=== PATIENT | male | born 1935 | race Caucasian/White ===

== ENCOUNTER 2023-10-24 19:24 | Inpatient (IN) | payer MEDICARE, OTHER ==
[2023-10-24] MEDS ORDERED: Albuterol/Ipratropium 3.0-0.5 MG/3 ML Neb Soln NEB ONE (19:30)
[2023-10-24 19:49] LABS: BASOPHILS ABSOLUTE AUTO 0.02 10^3/uL (0.00-0.50); BASOPHILS PERCENT AUTO 0.2 % (0-1); EOSINOPHILS ABSOLUTE AUTO 0.01 10^3/uL (0.00-1.50); EOSINOPHILS PERCENT AUTO 0.1 % (0-6); HEMATOCRIT 36.7 % (42.0-52.0); HEMOGLOBIN 11.8 g/dL (14.0-18.0); IMMATURE GRAN ABSOLUTE AUTO 0.03 10^3/uL (0.00-0.49); IMMATURE GRAN PERCENT AUTO 0.2 % (0.0-4.9); LYMPHOCYTES ABSOLUTE AUTO 0.92 10^3/uL (0.60-5.00); LYMPHOCYTES PERCENT AUTO 7.4 % (24-44); MEAN CORPUSCULAR HEMOGLOBIN 28.7 pg (27.0-32.0); MEAN CORPUSCULAR HGB CONC 32.2 g/dL (32.0-36.0); MEAN CORPUSCULAR VOLUME 89.3 fL (83.0-97.0); MONOCYTES ABSOLUTE AUTO 1.47 10^3/uL (0.00-1.50); MONOCYTES PERCENT AUTO 11.8 % (0-10); NEUTROPHILS ABSOLUTE AUTO 10.02 x10^3/uL (1.80-8.00); NEUTROPHILS PERCENT AUTO 80.3 % (41-71); PLATELET COUNT,PLT 186 10^3/uL (150-400); RED BLOOD CELL COUNT 4.11 x10^6/uL (4.50-6.00); WHITE BLOOD CELL COUNT,WBC 12.5 10^3/uL (4.0-11.0)
[2023-10-24 20:10] LABS: ALANINE AMINOTRANSFERASE,ALT 13 U/L (12-78); ALBUMIN 2.8 g/dL (3.4-5.0); ALKALINE PHOSPHATASE 75 U/L (46-116); ASPARTATE AMNIOTRANSFERASE,AST 14 U/L (15-37); BILIRUBIN TOTAL 0.4 mg/dL (0.0-1.0); BLOOD UREA NITROGEN,BUN 41 mg/dL (7-18); C-REACTIVE PROTEIN 7.96 mg/dL (<=0.50); CALCIUM 8.6 mg/dL (8.4-10.1); CARBON DIOXIDE,CO2 27 mmol/L (21-32); CHLORIDE,CL 101 mEq/L (98-106); CREATININE 1.6 mg/dL (0.7-1.3); ESTIMATED GFR 41 mL/min (>=60); GLUCOSE RANDOM 118 mg/dL (75-99); MAGNESIUM 1.9 mg/dL (1.8-2.4); POTASSIUM,K 4.4 mEq/L (3.5-5.0); PRO B-TYPE NATRIUR PEPT,BNPPRO 2871 pg/mL (0-1000); PROTEIN TOTAL,TP 6.9 g/dL (6.4-8.2); SODIUM,NA 136 mEq/L (136-145)
[2023-10-24 20:26] LABS: CORONAVIRUS COVID-19 NAA NEGATIVE (NEGATIVE); INFLUENZA A NAA POSITIVE (NEGATIVE); INFLUENZA B NAA NEGATIVE (NEGATIVE); RESPIRATORY SYNCYTIAL VIR NAA NEGATIVE (NEGATIVE)
[2023-10-24] MEDS ORDERED: Ondansetron 4 MG Tab.DIS PO PRN (21:51)
[2023-10-24] MEDS ORDERED: Ondansetron 4 MG/2 ML SDV IV PRN (21:51)
[2023-10-24] MEDS ORDERED: Acetaminophen 650 MG Supp RECTAL PRN (21:51)
[2023-10-24] MEDS ORDERED: Sodium Chloride 0.9% 10 ML Syringe FLUSH PRN (21:51)
[2023-10-24] MEDS ORDERED: Albuterol 0.083% 2.5 MG/3 ML Neb Soln NEB PRN (21:51)
[2023-10-24] MEDS ORDERED: Acetaminophen 325 MG Tab PO PRN (21:51)
[2023-10-24] MEDS ORDERED: Heparin Sodium 5,000 Units/ML Vial SUBCUT SCH (22:00)
[2023-10-24] MEDS: Azithromycin 500 MG in Sodium Chloride 0.9% 250 ML IV SCH (22:31)
[2023-10-24] MEDS: methylPREDNISolone Sodium Succinate 40 MG/1 ML SDV IVPUSH SCH (22:31)
[2023-10-24] MEDS: cefTRIAXone 1 GM Vial IVPUSH SCH (22:32)
[2023-10-24] MEDS: Oseltamivir 30 MG Cap PO SCH (22:32)
[2023-10-24] MEDS ORDERED: Lidocaine 4% 1 each Patch TOP PRN (22:41)
[2023-10-25] MEDS ORDERED: Furosemide 100 MG/10 ML SDV IVPUSH SCH (01:00)
[2023-10-25] MEDS: Furosemide 40 MG/4 ML VIAL IVPUSH SCH ×2 (02:26→08:02)
[2023-10-25] MEDS: methylPREDNISolone Sodium Succinate 40 MG/1 ML SDV IVPUSH SCH (08:01)
[2023-10-25] MEDS: Oseltamivir 30 MG Cap PO SCH ×2 (08:02→19:43)
[2023-10-25] MEDS: Aspirin 81 MG Tab.EC PO SCH (08:02)
[2023-10-25] MEDS: Clopidogrel 75 MG Tab PO SCH (08:02)
[2023-10-25] MEDS: Heparin Sodium 5,000 Units/ML Vial SUBCUT SCH ×3 (08:02→23:26)
[2023-10-25] MEDS: Albuterol/Ipratropium 3.0-0.5 MG/3 ML Neb Soln NEB SCH ×4 (08:02→19:44)
[2023-10-25 08:04] LABS: BASOPHILS ABSOLUTE AUTO 0.01 10^3/uL (0.00-0.50); BASOPHILS PERCENT AUTO 0.1 % (0-1); HEMATOCRIT 37.7 % (42.0-52.0); IMMATURE GRAN ABSOLUTE AUTO 0.01 10^3/uL (0.00-0.49); IMMATURE GRAN PERCENT AUTO 0.1 % (0.0-4.9); LYMPHOCYTES ABSOLUTE AUTO 0.88 10^3/uL (0.60-5.00); LYMPHOCYTES PERCENT AUTO 11.2 % (24-44); MEAN CORPUSCULAR HEMOGLOBIN 28.4 pg (27.0-32.0); MEAN CORPUSCULAR HGB CONC 31.8 g/dL (32.0-36.0); MEAN CORPUSCULAR VOLUME 89.1 fL (83.0-97.0); MONOCYTES ABSOLUTE AUTO 0.12 10^3/uL (0.00-1.50); MONOCYTES PERCENT AUTO 1.5 % (0-10); NEUTROPHILS ABSOLUTE AUTO 6.85 x10^3/uL (1.80-8.00); NEUTROPHILS PERCENT AUTO 87.1 % (41-71); PLATELET COUNT,PLT 230 10^3/uL (150-400); RED BLOOD CELL COUNT 4.23 x10^6/uL (4.50-6.00); WHITE BLOOD CELL COUNT,WBC 7.9 10^3/uL (4.0-11.0)
[2023-10-25] MEDS: Formoterol/Mometasone 200-5 MCG 8.8 GM Inhaler IH SCH ×2 (08:04→20:31)
[2023-10-25 08:28] LABS: ALBUMIN 2.7 g/dL (3.4-5.0); BILIRUBIN TOTAL 0.4 mg/dL (0.0-1.0); C-REACTIVE PROTEIN 9.64 mg/dL (<=0.50); CALCIUM 8.8 mg/dL (8.4-10.1); CREATININE 1.5 mg/dL (0.7-1.3); EST CRCL DRUG DOSING (CG) 33.5 mL/min; POTASSIUM,K 4.6 mEq/L (3.5-5.0)
[2023-10-25] MEDS ORDERED: Acetaminophen/HYDROcodone 325-5 MG Tab PO PRN (09:15)
[2023-10-25] MEDS: Metoprolol Succinate 100 MG Tab.ER PO SCH (09:31)
[2023-10-25] MEDS: Gabapentin 300 MG Cap PO SCH ×2 (13:53→19:44)
[2023-10-25] MEDS: Tamsulosin 0.4 MG Cap.ER PO SCH (19:43)
[2023-10-25] MEDS: Azithromycin 500 MG in Sodium Chloride 0.9% 250 ML IV SCH (22:25)
[2023-10-25] MEDS: cefTRIAXone 1 GM Vial IVPUSH SCH (22:25)
[2023-10-26 07:44] LABS: BASOPHILS ABSOLUTE AUTO 0.01 10^3/uL (0.00-0.50); BASOPHILS PERCENT AUTO 0.1 % (0-1); HEMATOCRIT 35.2 % (42.0-52.0); HEMOGLOBIN 11.5 g/dL (14.0-18.0); IMMATURE GRAN ABSOLUTE AUTO 0.02 10^3/uL (0.00-0.49); IMMATURE GRAN PERCENT AUTO 0.3 % (0.0-4.9); LYMPHOCYTES PERCENT AUTO 16.5 % (24-44); MEAN CORPUSCULAR HEMOGLOBIN 28.5 pg (27.0-32.0); MEAN CORPUSCULAR HGB CONC 32.7 g/dL (32.0-36.0); MEAN CORPUSCULAR VOLUME 87.3 fL (83.0-97.0); MONOCYTES ABSOLUTE AUTO 0.77 10^3/uL (0.00-1.50); MONOCYTES PERCENT AUTO 10.6 % (0-10); NEUTROPHILS ABSOLUTE AUTO 5.28 x10^3/uL (1.80-8.00); NEUTROPHILS PERCENT AUTO 72.5 % (41-71); PLATELET COUNT,PLT 224 10^3/uL (150-400); RED BLOOD CELL COUNT 4.03 x10^6/uL (4.50-6.00); WHITE BLOOD CELL COUNT,WBC 7.3 10^3/uL (4.0-11.0)
[2023-10-26 07:45] LABS: ALBUMIN 2.5 g/dL (3.4-5.0); BILIRUBIN TOTAL 0.3 mg/dL (0.0-1.0); C-REACTIVE PROTEIN 5.15 mg/dL (<=0.50); CALCIUM 9.1 mg/dL (8.4-10.1); CREATININE 1.4 mg/dL (0.7-1.3); EST CRCL DRUG DOSING (CG) 35.66 mL/min; POTASSIUM,K 4.4 mEq/L (3.5-5.0); PROTEIN TOTAL,TP 6.7 g/dL (6.4-8.2)
[2023-10-26] MEDS: Metoprolol Succinate 100 MG Tab.ER PO SCH (08:08)
[2023-10-26] MEDS: Aspirin 81 MG Tab.EC PO SCH (08:10)
[2023-10-26] MEDS: Clopidogrel 75 MG Tab PO SCH (08:10)
[2023-10-26] MEDS: Oseltamivir 30 MG Cap PO SCH ×2 (08:10→19:45)
[2023-10-26] MEDS: Gabapentin 300 MG Cap PO SCH ×3 (08:10→19:45)
[2023-10-26] MEDS: Furosemide 40 MG/4 ML VIAL IVPUSH SCH (08:11)
[2023-10-26] MEDS: methylPREDNISolone Sodium Succinate 40 MG/1 ML SDV IVPUSH SCH (08:11)
[2023-10-26] MEDS: Heparin Sodium 5,000 Units/ML Vial SUBCUT SCH ×2 (08:12→16:22)
[2023-10-26] MEDS: Formoterol/Mometasone 200-5 MCG 8.8 GM Inhaler IH SCH ×2 (08:13→20:05)
[2023-10-26] MEDS: Albuterol/Ipratropium 3.0-0.5 MG/3 ML Neb Soln NEB SCH ×4 (08:13→19:45)
[2023-10-26] MEDS: Tamsulosin 0.4 MG Cap.ER PO SCH (19:45)
[2023-10-26] MEDS: cefTRIAXone 1 GM Vial IVPUSH SCH (22:46)
[2023-10-26] MEDS: Azithromycin 500 MG in Sodium Chloride 0.9% 250 ML IV SCH (22:55)
[2023-10-27] MEDS: Heparin Sodium 5,000 Units/ML Vial SUBCUT SCH ×4 (00:33→23:46)
[2023-10-27 07:46] LABS: HEMATOCRIT 32.3 % (42.0-52.0); HEMOGLOBIN 10.5 g/dL (14.0-18.0); IMMATURE GRAN ABSOLUTE AUTO 0.09 10^3/uL (0.00-0.49); IMMATURE GRAN PERCENT AUTO 1.2 % (0.0-4.9); LYMPHOCYTES ABSOLUTE AUTO 1.44 10^3/uL (0.60-5.00); LYMPHOCYTES PERCENT AUTO 19.1 % (24-44); MEAN CORPUSCULAR HEMOGLOBIN 28.2 pg (27.0-32.0); MEAN CORPUSCULAR HGB CONC 32.5 g/dL (32.0-36.0); MEAN CORPUSCULAR VOLUME 86.8 fL (83.0-97.0); MONOCYTES ABSOLUTE AUTO 0.84 10^3/uL (0.00-1.50); MONOCYTES PERCENT AUTO 11.2 % (0-10); NEUTROPHILS ABSOLUTE AUTO 5.16 x10^3/uL (1.80-8.00); NEUTROPHILS PERCENT AUTO 68.5 % (41-71); PLATELET COUNT,PLT 235 10^3/uL (150-400); RED BLOOD CELL COUNT 3.72 x10^6/uL (4.50-6.00); WHITE BLOOD CELL COUNT,WBC 7.5 10^3/uL (4.0-11.0)
[2023-10-27] MEDS: Albuterol/Ipratropium 3.0-0.5 MG/3 ML Neb Soln NEB SCH ×4 (08:07→19:29)
[2023-10-27 08:13] LABS: ALBUMIN 2.3 g/dL (3.4-5.0); BILIRUBIN TOTAL 0.3 mg/dL (0.0-1.0); C-REACTIVE PROTEIN 1.91 mg/dL (<=0.50); CREATININE 1.4 mg/dL (0.7-1.3); EST CRCL DRUG DOSING (CG) 35.87 mL/min; PROTEIN TOTAL,TP 6.1 g/dL (6.4-8.2)
[2023-10-27] MEDS: methylPREDNISolone Sodium Succinate 40 MG/1 ML SDV IVPUSH SCH (08:24)
[2023-10-27] MEDS: Furosemide 40 MG/4 ML VIAL IVPUSH SCH (08:26)
[2023-10-27] MEDS: Gabapentin 300 MG Cap PO SCH ×3 (08:27→19:29)
[2023-10-27] MEDS: Clopidogrel 75 MG Tab PO SCH (08:27)
[2023-10-27] MEDS: Aspirin 81 MG Tab.EC PO SCH (08:27)
[2023-10-27] MEDS: Oseltamivir 30 MG Cap PO SCH ×2 (08:27→19:29)
[2023-10-27] MEDS: Formoterol/Mometasone 200-5 MCG 8.8 GM Inhaler IH SCH ×2 (08:36→19:31)
[2023-10-27] MEDS: Metoprolol Succinate 100 MG Tab.ER PO SCH (08:40)
[2023-10-27] MEDS: Nicotine 21 MG/24 Hr Patch TRDERM SCH (13:02)
[2023-10-27] MEDS: Tamsulosin 0.4 MG Cap.ER PO SCH (19:29)
[2023-10-27] MEDS: cefTRIAXone 1 GM Vial IVPUSH SCH (22:33)
[2023-10-27] MEDS: Azithromycin 500 MG in Sodium Chloride 0.9% 250 ML IV SCH (22:37)
[2023-10-28] MEDS: methylPREDNISolone Sodium Succinate 40 MG/1 ML SDV IVPUSH SCH (07:30)
[2023-10-28] MEDS: Albuterol/Ipratropium 3.0-0.5 MG/3 ML Neb Soln NEB SCH ×2 (07:30→12:45)
[2023-10-28] MEDS: Nicotine 21 MG/24 Hr Patch TRDERM SCH (07:30)
[2023-10-28] MEDS: Aspirin 81 MG Tab.EC PO SCH (07:31)
[2023-10-28] MEDS: Heparin Sodium 5,000 Units/ML Vial SUBCUT SCH (07:31)
[2023-10-28] MEDS: Metoprolol Succinate 100 MG Tab.ER PO SCH (07:31)
[2023-10-28] MEDS: Gabapentin 300 MG Cap PO SCH ×2 (07:32→18:13)
[2023-10-28] MEDS: Oseltamivir 30 MG Cap PO SCH (07:32)
[2023-10-28] MEDS: Clopidogrel 75 MG Tab PO SCH (07:36)
[2023-10-28] MEDS: Formoterol/Mometasone 200-5 MCG 8.8 GM Inhaler IH SCH (07:48)
[2023-10-28 07:59] LABS: BASOPHILS ABSOLUTE AUTO 0.01 10^3/uL (0.00-0.50); BASOPHILS PERCENT AUTO 0.1 % (0-1); HEMATOCRIT 31.9 % (42.0-52.0); HEMOGLOBIN 10.4 g/dL (14.0-18.0); IMMATURE GRAN ABSOLUTE AUTO 0.19 10^3/uL (0.00-0.49); IMMATURE GRAN PERCENT AUTO 2.7 % (0.0-4.9); LYMPHOCYTES ABSOLUTE AUTO 1.69 10^3/uL (0.60-5.00); MEAN CORPUSCULAR HEMOGLOBIN 28.6 pg (27.0-32.0); MEAN CORPUSCULAR HGB CONC 32.6 g/dL (32.0-36.0); MEAN CORPUSCULAR VOLUME 87.6 fL (83.0-97.0); NEUTROPHILS ABSOLUTE AUTO 4.44 x10^3/uL (1.80-8.00); NEUTROPHILS PERCENT AUTO 63.2 % (41-71); PLATELET COUNT,PLT 248 10^3/uL (150-400); RED BLOOD CELL COUNT 3.64 x10^6/uL (4.50-6.00)
[2023-10-28] MEDS ORDERED: Furosemide 20 MG Tab PO SCH (08:00)
[2023-10-28 08:29] LABS: CALCIUM 9.1 mg/dL (8.4-10.1); CREATININE 1.2 mg/dL (0.7-1.3); EST CRCL DRUG DOSING (CG) 41.18 mL/min; POTASSIUM,K 4.4 mEq/L (3.5-5.0)
[2023-10-28 13:25] VITALS: BP 116/51; PULSE 74
== END 2023-10-28 14:43 | disposition swing bed (61) | DRG 195 ==
LOC: CC.ED 19:24 → CC.MS 20:44 → UNDOADMIN 20:44 → CC.MS 21:21
PROVIDERS: ADMIT Nurse Practitioner Family; ATTEND Nurse Practitioner Family
DX: J10.08 Influenza due to other identified influenza virus with other specified pneumonia (principal); J12.9 Viral pneumonia, unspecified; R09.02 Hypoxemia; I50.9 Heart failure, unspecified; D72.829 Elevated white blood cell count, unspecified; J11.1 Influenza due to unidentified influenza virus with other respiratory manifestations; F17.210 Nicotine dependence, cigarettes, uncomplicated; R79.89 Other specified abnormal findings of blood chemistry; Z20.822 Contact with and (suspected) exposure to COVID-19; Z79.82 Long term (current) use of aspirin; Z79.899 Other long term (current) drug therapy; Z99.81 Dependence on supplemental oxygen; Z99.89 Dependence on other enabling machines and devices
CPT/HCPCS: 0241U; 36415; 71045; 80048; 80053; 83735; 83880; 84484; 85025; 86140; 93005; 93010; 93306; 94640; 97110-GP; 97161-GP; 97530-GP; 99223; 99232; 99233; 99238; 99285; A9270-GY; J0456; J0696; J1644; J1940; J2920; J7050; J7620-GY

== ENCOUNTER 2023-10-28 14:56 | Inpatient (IN) | payer MEDICARE, OTHER ==
[2023-10-28] MEDS ORDERED: Acetaminophen 325 MG Tab PO PRN (15:33)
[2023-10-28] MEDS ORDERED: Acetaminophen 650 MG Supp RECTAL PRN (15:33)
[2023-10-28] MEDS ORDERED: Sodium Chloride 0.9% 10 ML Syringe FLUSH PRN ×2 (15:33)
[2023-10-28] MEDS ORDERED: Ondansetron 4 MG Tab.DIS PO PRN (15:33)
[2023-10-28] MEDS ORDERED: Ondansetron 4 MG/2 ML SDV IV PRN (15:33)
[2023-10-28] MEDS ORDERED: Acetaminophen/HYDROcodone 325-5 MG Tab PO PRN (15:33)
[2023-10-28] MEDS ORDERED: Lidocaine 4% 1 each Patch TOP PRN (15:33)
[2023-10-28] MEDS ORDERED: Albuterol 0.083% 2.5 MG/3 ML Neb Soln NEB PRN (15:33)
[2023-10-28] MEDS: Albuterol/Ipratropium 3.0-0.5 MG/3 ML Neb Soln NEB SCH ×2 (16:33→20:03)
[2023-10-28] MEDS: Heparin Sodium 5,000 Units/ML Vial SUBCUT SCH ×2 (16:33→23:30)
[2023-10-28] MEDS: Tamsulosin 0.4 MG Cap.ER PO SCH (19:10)
[2023-10-28] MEDS: Gabapentin 100 MG Cap PO SCH (19:10)
[2023-10-28] MEDS: Gabapentin 300 MG Cap PO SCH (19:10)
[2023-10-28] MEDS: Oseltamivir 30 MG Cap PO SCH (19:11)
[2023-10-28] MEDS ORDERED: Acetaminophen 500 MG Tab PO ONE (19:46)
[2023-10-28] MEDS: Formoterol/Mometasone 200-5 MCG 8.8 GM Inhaler IH SCH (20:03)
[2023-10-28] MEDS: cefTRIAXone 1 GM Vial IVPUSH SCH (21:26)
[2023-10-28] MEDS: Azithromycin 500 MG in Sodium Chloride 0.9% 250 ML IV SCH (21:28)
[2023-10-29] MEDS: methylPREDNISolone Sodium Succinate 40 MG/1 ML SDV IVPUSH SCH (07:46)
[2023-10-29] MEDS: Heparin Sodium 5,000 Units/ML Vial SUBCUT SCH ×3 (07:55→23:33)
[2023-10-29] MEDS: Clopidogrel 75 MG Tab PO SCH (07:56)
[2023-10-29] MEDS: Oseltamivir 30 MG Cap PO SCH ×2 (07:56→19:37)
[2023-10-29] MEDS: Albuterol/Ipratropium 3.0-0.5 MG/3 ML Neb Soln NEB SCH ×4 (07:56→19:36)
[2023-10-29] MEDS: Nicotine 21 MG/24 Hr Patch TRDERM SCH (07:56)
[2023-10-29] MEDS: Gabapentin 100 MG Cap PO SCH ×3 (07:57→19:37)
[2023-10-29] MEDS: Furosemide 20 MG Tab PO SCH (07:57)
[2023-10-29] MEDS: Aspirin 81 MG Tab.EC PO SCH (07:57)
[2023-10-29] MEDS: Gabapentin 300 MG Cap PO SCH ×3 (07:57→19:37)
[2023-10-29] MEDS: Formoterol/Mometasone 200-5 MCG 8.8 GM Inhaler IH SCH ×2 (07:58→19:37)
[2023-10-29] MEDS: Metoprolol Succinate 100 MG Tab.ER PO SCH (08:13)
[2023-10-29] MEDS: Tamsulosin 0.4 MG Cap.ER PO SCH (19:36)
[2023-10-29] MEDS: cefTRIAXone 1 GM Vial IVPUSH SCH (21:29)
[2023-10-29] MEDS: Azithromycin 500 MG in Sodium Chloride 0.9% 250 ML IV SCH (21:32)
[2023-10-30] MEDS: Furosemide 20 MG Tab PO SCH (08:29)
[2023-10-30] MEDS: Heparin Sodium 5,000 Units/ML Vial SUBCUT SCH (08:29)
[2023-10-30] MEDS: Albuterol/Ipratropium 3.0-0.5 MG/3 ML Neb Soln NEB SCH ×2 (08:29→12:22)
[2023-10-30] MEDS: Clopidogrel 75 MG Tab PO SCH (08:29)
[2023-10-30] MEDS: Gabapentin 100 MG Cap PO SCH ×2 (08:30→13:15)
[2023-10-30] MEDS: Aspirin 81 MG Tab.EC PO SCH (08:30)
[2023-10-30] MEDS: Nicotine 21 MG/24 Hr Patch TRDERM SCH (08:30)
[2023-10-30] MEDS: Metoprolol Succinate 100 MG Tab.ER PO SCH (08:30)
[2023-10-30] MEDS: Gabapentin 300 MG Cap PO SCH ×2 (08:30→13:15)
[2023-10-30] MEDS: Formoterol/Mometasone 200-5 MCG 8.8 GM Inhaler IH SCH (08:32)
[2023-10-30] MEDS ORDERED: predniSONE 20 MG Tab PO STA (10:43)
[2023-10-30] MEDS: methylPREDNISolone Sodium Succinate 40 MG/1 ML SDV IVPUSH SCH (10:55)
[2023-10-30 12:41] VITALS: BP 119/60; PULSE 93
== END 2023-10-30 13:50 | disposition home or self-care (01) | DRG 193 ==
LOC: CC.MS 14:56 → UNDOADMIN 14:56 → CC.MS 15:33
PROVIDERS: ADMIT Nurse Practitioner Family; ATTEND Nurse Practitioner Family
DX: J10.1 Influenza due to other identified influenza virus with other respiratory manifestations (principal); I50.23 Acute on chronic systolic (congestive) heart failure; J44.1 Chronic obstructive pulmonary disease with (acute) exacerbation; R53.1 Weakness; R79.89 Other specified abnormal findings of blood chemistry; R09.02 Hypoxemia; D72.829 Elevated white blood cell count, unspecified; Z99.81 Dependence on supplemental oxygen; Z79.02 Long term (current) use of antithrombotics/antiplatelets; Z79.82 Long term (current) use of aspirin; Z79.899 Other long term (current) drug therapy
CPT/HCPCS: 94640; 97110-GP; A9270-GY; J0456; J0696; J1644; J2920; J7050; J7512; J7620-GY

== ENCOUNTER 2023-11-05 13:57 | Inpatient (IN) | payer MEDICARE, OTHER ==
[2023-11-05] MEDS ORDERED: Furosemide 20 MG/2 ML VIAL IVPUSH ONE (14:03)
[2023-11-05 14:23] LABS: BASOPHILS ABSOLUTE AUTO 0.01 10^3/uL (0.00-0.50); BASOPHILS PERCENT AUTO 0.1 % (0-1); EOSINOPHILS ABSOLUTE AUTO 0.01 10^3/uL (0.00-1.50); EOSINOPHILS PERCENT AUTO 0.1 % (0-6); IMMATURE GRAN ABSOLUTE AUTO 0.36 10^3/uL (0.00-0.49); LYMPHOCYTES PERCENT AUTO 13.6 % (24-44); MEAN CORPUSCULAR HEMOGLOBIN 29.7 pg (27.0-32.0); MEAN CORPUSCULAR HGB CONC 33.3 g/dL (32.0-36.0); MONOCYTES ABSOLUTE AUTO 2.25 10^3/uL (0.00-1.50); MONOCYTES PERCENT AUTO 12.8 % (0-10); NEUTROPHILS ABSOLUTE AUTO 12.58 x10^3/uL (1.80-8.00); NEUTROPHILS PERCENT AUTO 71.4 % (41-71); PLATELET COUNT,PLT 173 10^3/uL (150-400); RED BLOOD CELL COUNT 2.09 x10^6/uL (4.50-6.00); WHITE BLOOD CELL COUNT,WBC 17.6 10^3/uL (4.0-11.0)
[2023-11-05 14:35] LABS: HEMATOCRIT 18.6 % (42.0-52.0); HEMOGLOBIN 6.2 g/dL (14.0-18.0)
[2023-11-05] MEDS ORDERED: Piperacillin/Tazobactam 4.5 GM in Sodium Chloride 0.9% 100 ML IV ONE (14:40)
[2023-11-05 14:42] LABS: APPEARANCE,URINE CLEAR (CLEAR); BILIRUBIN,URINE NEGATIVE (NEGATIVE); COLOR,URINE YELLOW (YELLOW); GLUCOSE,URINE NEGATIVE (NEGATIVE); KETONES,URINE NEGATIVE (NEGATIVE); LEUKOCYTE ESTERASE,URINE TRACE (NEGATIVE); NITRITE,URINE NEGATIVE (NEGATIVE); OCCULT BLOOD,URINE LARGE (NEGATIVE); PH,URINE 5.5 (4.5-8.0); PROTEIN,URINE NEGATIVE (NEGATIVE); UROBILINOGEN,URINE 0.2 EU/dL (0.2-1.0)
[2023-11-05 14:43] LABS: ALBUMIN 2.2 g/dL (3.4-5.0); BILIRUBIN TOTAL 0.4 mg/dL (0.0-1.0); C-REACTIVE PROTEIN 4.83 mg/dL (<=0.50); CALCIUM 8.7 mg/dL (8.4-10.1); EST CRCL DRUG DOSING (CG) 4.59 mL/min; MAGNESIUM 2.1 mg/dL (1.8-2.4); PROTEIN TOTAL,TP 5.4 g/dL (6.4-8.2)
[2023-11-05 14:44] LABS: CREATININE 10.6 mg/dL (0.7-1.3); POTASSIUM,K 7.2 mEq/L (3.5-5.0)
[2023-11-05 14:49] LABS: BACTERIA,URINE NOT SEEN /HPF (NOT SEEN); EPITHELIAL CELLS,URINE OCCASIONAL /HPF (NOT SEEN); MUCUS,URINE OCCASIONAL /HPF (NOT SEEN); RBC,URINE 30-40 /HPF (0-5); WBC,URINE 0-5 /HPF (0-5)
[2023-11-05] MEDS ORDERED: Glucagon,Human Recombinant 1 MG Vial IM PRN (14:56)
[2023-11-05] MEDS ORDERED: Calcium Chloride 10% 1 GM/10 ML Syringe IV ONE (14:56)
[2023-11-05] MEDS ORDERED: Insulin Regular, Human 100 Units/ML 3 ML Vial IV ONE (14:56)
[2023-11-05] MEDS ORDERED: Albuterol 0.083% 2.5 MG/3 ML Neb Soln NEB ONE (14:56)
[2023-11-05] MEDS ORDERED: 50% Dextrose in Water 50 ML Syringe IVPUSH ONE (14:56)
[2023-11-05] MEDS ORDERED: 50% Dextrose in Water 50 ML Syringe IVPUSH PRN (14:56)
[2023-11-05] MEDS ORDERED: Sodium Chloride 0.9% 1,000 ML IV STA (15:32)
[2023-11-05] MEDS ORDERED: Sodium Bicarbonate 100 MEQ in Dextrose 5% in Water 1,000 ML IV ONE ×2 (15:44)
[2023-11-05] MEDS ORDERED: Calcium Gluconate 1 GM in Sodium Chloride 0.9% 100 ML IV ONE (15:45)
[2023-11-05] MEDS ORDERED: Docusate Sodium 100 MG Cap PO PRN (16:34)
[2023-11-05] MEDS ORDERED: Acetaminophen 650 MG Supp RECTAL PRN (16:34)
[2023-11-05] MEDS ORDERED: Polyethylene Glycol 3350 Powder 17 GM Packet PO PRN (16:34)
[2023-11-05] MEDS ORDERED: Ondansetron 4 MG/2 ML SDV IV PRN (16:34)
[2023-11-05] MEDS: Sodium Zirconium Cyclosilicate 10 GM Packet PO SCH (18:40)
[2023-11-05] MEDS: Albuterol/Ipratropium 3.0-0.5 MG/3 ML Neb Soln NEB SCH (19:13)
[2023-11-05] MEDS: Acetaminophen 325 MG Tab PO PRN (21:31)
[2023-11-06] MEDS: Albuterol/Ipratropium 3.0-0.5 MG/3 ML Neb Soln NEB SCH ×5 (05:26→19:28)
[2023-11-06 07:39] LABS: BASOPHILS ABSOLUTE AUTO 0.01 10^3/uL (0.00-0.50); BASOPHILS PERCENT AUTO 0.1 % (0-1); EOSINOPHILS ABSOLUTE AUTO 0.01 10^3/uL (0.00-1.50); EOSINOPHILS PERCENT AUTO 0.1 % (0-6); HEMATOCRIT 20.5 % (42.0-52.0); IMMATURE GRAN ABSOLUTE AUTO 0.15 10^3/uL (0.00-0.49); IMMATURE GRAN PERCENT AUTO 1.5 % (0.0-4.9); LYMPHOCYTES ABSOLUTE AUTO 1.92 10^3/uL (0.60-5.00); LYMPHOCYTES PERCENT AUTO 19.4 % (24-44); MEAN CORPUSCULAR HEMOGLOBIN 29.4 pg (27.0-32.0); MEAN CORPUSCULAR HGB CONC 32.7 g/dL (32.0-36.0); MEAN CORPUSCULAR VOLUME 89.9 fL (83.0-97.0); MONOCYTES ABSOLUTE AUTO 1.44 10^3/uL (0.00-1.50); MONOCYTES PERCENT AUTO 14.6 % (0-10); NEUTROPHILS ABSOLUTE AUTO 6.35 x10^3/uL (1.80-8.00); NEUTROPHILS PERCENT AUTO 64.3 % (41-71); PLATELET COUNT,PLT 162 10^3/uL (150-400); RED BLOOD CELL COUNT 2.28 x10^6/uL (4.50-6.00); WHITE BLOOD CELL COUNT,WBC 9.9 10^3/uL (4.0-11.0)
[2023-11-06] MEDS: Furosemide 20 MG/2 ML VIAL IVPUSH SCH ×2 (07:52→19:30)
[2023-11-06] MEDS: Sodium Zirconium Cyclosilicate 10 GM Packet PO SCH ×3 (07:52→10:52)
[2023-11-06 07:56] LABS: BILIRUBIN TOTAL 0.6 mg/dL (0.0-1.0); CALCIUM 8.5 mg/dL (8.4-10.1); EST CRCL DRUG DOSING (CG) 10.14 mL/min; HEMOGLOBIN 6.7 g/dL (14.0-18.0); MAGNESIUM 2.1 mg/dL (1.8-2.4); POTASSIUM,K 4.4 mEq/L (3.5-5.0); PROTEIN TOTAL,TP 4.9 g/dL (6.4-8.2)
[2023-11-06 08:04] LABS: CREATININE 4.8 mg/dL (0.7-1.3)
[2023-11-06] MEDS ORDERED: Amiodarone 150 MG/3 ML SDV IVPUSH ONE (09:33)
[2023-11-06] MEDS ORDERED: Furosemide 40 MG/4 ML VIAL IVPUSH ONE ×2 (09:33→14:59)
[2023-11-06] MEDS ORDERED: Diltiazem 25 MG/5 ML SDV IVPUSH ONE (09:33)
[2023-11-06] MEDS ORDERED: Diltiazem 100 MG in Sodium Chloride 0.9% 100 ML IV SCH (09:45)
[2023-11-06] MEDS ORDERED: Morphine 2 MG/ML SYRINGE IVPUSH ONE ×2 (10:00→12:55)
[2023-11-06] MEDS: Piperacillin/Tazobactam 3.375 GM in Sodium Chloride 0.9% 100 ML IV SCH (15:20)
[2023-11-06] MEDS: Pantoprazole 40 MG Vial IVPUSH SCH (16:02)
[2023-11-06] MEDS ORDERED: Sodium Chloride 0.9% 250 ML IV ONE (17:00)
[2023-11-06 20:10] LABS: BASOPHILS ABSOLUTE AUTO 0.01 10^3/uL (0.00-0.50); BASOPHILS PERCENT AUTO 0.1 % (0-1); EOSINOPHILS ABSOLUTE AUTO 0.01 10^3/uL (0.00-1.50); EOSINOPHILS PERCENT AUTO 0.1 % (0-6); HEMATOCRIT 24.3 % (42.0-52.0); HEMOGLOBIN 8.1 g/dL (14.0-18.0); IMMATURE GRAN ABSOLUTE AUTO 0.16 10^3/uL (0.00-0.49); IMMATURE GRAN PERCENT AUTO 1.2 % (0.0-4.9); LYMPHOCYTES ABSOLUTE AUTO 2.29 10^3/uL (0.60-5.00); LYMPHOCYTES PERCENT AUTO 17.3 % (24-44); MEAN CORPUSCULAR HEMOGLOBIN 30.1 pg (27.0-32.0); MEAN CORPUSCULAR HGB CONC 33.3 g/dL (32.0-36.0); MEAN CORPUSCULAR VOLUME 90.3 fL (83.0-97.0); MONOCYTES ABSOLUTE AUTO 2.42 10^3/uL (0.00-1.50); MONOCYTES PERCENT AUTO 18.3 % (0-10); NEUTROPHILS ABSOLUTE AUTO 8.33 x10^3/uL (1.80-8.00); PLATELET COUNT,PLT 145 10^3/uL (150-400); RED BLOOD CELL COUNT 2.69 x10^6/uL (4.50-6.00); WHITE BLOOD CELL COUNT,WBC 13.2 10^3/uL (4.0-11.0)
[2023-11-06 20:26] LABS: ALBUMIN 2.1 g/dL (3.4-5.0); BILIRUBIN TOTAL 0.6 mg/dL (0.0-1.0); CALCIUM 8.2 mg/dL (8.4-10.1); CREATININE 3.1 mg/dL (0.7-1.3); EST CRCL DRUG DOSING (CG) 15.7 mL/min; MAGNESIUM 1.8 mg/dL (1.8-2.4); POTASSIUM,K 3.9 mEq/L (3.5-5.0); PROTEIN TOTAL,TP 5.3 g/dL (6.4-8.2)
[2023-11-07] MEDS: Acetaminophen 325 MG Tab PO PRN ×3 (00:22→20:49)
[2023-11-07] MEDS: Piperacillin/Tazobactam 3.375 GM in Sodium Chloride 0.9% 100 ML IV SCH (03:12)
[2023-11-07] MEDS: Albuterol/Ipratropium 3.0-0.5 MG/3 ML Neb Soln NEB SCH ×4 (08:51→19:49)
[2023-11-07] MEDS: Furosemide 20 MG/2 ML VIAL IVPUSH SCH ×2 (08:51→16:28)
[2023-11-07 11:25] LABS: BASOPHILS ABSOLUTE AUTO 0.01 10^3/uL (0.00-0.50); BASOPHILS PERCENT AUTO 0.1 % (0-1); EOSINOPHILS ABSOLUTE AUTO 0.01 10^3/uL (0.00-1.50); EOSINOPHILS PERCENT AUTO 0.1 % (0-6); HEMATOCRIT 26.5 % (42.0-52.0); HEMOGLOBIN 8.6 g/dL (14.0-18.0); IMMATURE GRAN ABSOLUTE AUTO 0.09 10^3/uL (0.00-0.49); IMMATURE GRAN PERCENT AUTO 0.7 % (0.0-4.9); LYMPHOCYTES ABSOLUTE AUTO 1.02 10^3/uL (0.60-5.00); LYMPHOCYTES PERCENT AUTO 8.2 % (24-44); MEAN CORPUSCULAR HEMOGLOBIN 29.6 pg (27.0-32.0); MEAN CORPUSCULAR HGB CONC 32.5 g/dL (32.0-36.0); MEAN CORPUSCULAR VOLUME 91.1 fL (83.0-97.0); MONOCYTES ABSOLUTE AUTO 2.29 10^3/uL (0.00-1.50); MONOCYTES PERCENT AUTO 18.3 % (0-10); NEUTROPHILS ABSOLUTE AUTO 9.08 x10^3/uL (1.80-8.00); NEUTROPHILS PERCENT AUTO 72.6 % (41-71); PLATELET COUNT,PLT 151 10^3/uL (150-400); RED BLOOD CELL COUNT 2.91 x10^6/uL (4.50-6.00); WHITE BLOOD CELL COUNT,WBC 12.5 10^3/uL (4.0-11.0)
[2023-11-07 11:40] LABS: CALCIUM 8.4 mg/dL (8.4-10.1); CREATININE 2.2 mg/dL (0.7-1.3); EST CRCL DRUG DOSING (CG) 22.12 mL/min; MAGNESIUM 1.8 mg/dL (1.8-2.4); POTASSIUM,K 3.6 mEq/L (3.5-5.0)
[2023-11-07] MEDS: Meropenem 1 GM SDV IVPUSH SCH (13:35)
[2023-11-07] MEDS: Pantoprazole 40 MG Vial IVPUSH SCH (16:34)
[2023-11-08] MEDS: Meropenem 1 GM SDV IVPUSH SCH ×2 (00:49→13:04)
[2023-11-08] MEDS: Acetaminophen 325 MG Tab PO PRN ×3 (00:54→19:18)
[2023-11-08] MEDS: Albuterol/Ipratropium 3.0-0.5 MG/3 ML Neb Soln NEB SCH ×4 (07:58→19:17)
[2023-11-08] MEDS: Furosemide 20 MG/2 ML VIAL IVPUSH SCH (08:00)
[2023-11-08 10:25] LABS: BASOPHILS ABSOLUTE AUTO 0.02 10^3/uL (0.00-0.50); BASOPHILS PERCENT AUTO 0.2 % (0-1); EOSINOPHILS ABSOLUTE AUTO 0.03 10^3/uL (0.00-1.50); EOSINOPHILS PERCENT AUTO 0.2 % (0-6); HEMATOCRIT 27.8 % (42.0-52.0); HEMOGLOBIN 8.9 g/dL (14.0-18.0); IMMATURE GRAN ABSOLUTE AUTO 0.07 10^3/uL (0.00-0.49); IMMATURE GRAN PERCENT AUTO 0.5 % (0.0-4.9); LYMPHOCYTES ABSOLUTE AUTO 0.87 10^3/uL (0.60-5.00); LYMPHOCYTES PERCENT AUTO 6.7 % (24-44); MEAN CORPUSCULAR HEMOGLOBIN 29.4 pg (27.0-32.0); MEAN CORPUSCULAR VOLUME 91.7 fL (83.0-97.0); MONOCYTES PERCENT AUTO 14.6 % (0-10); NEUTROPHILS ABSOLUTE AUTO 10.16 x10^3/uL (1.80-8.00); NEUTROPHILS PERCENT AUTO 77.8 % (41-71); PLATELET COUNT,PLT 173 10^3/uL (150-400); RED BLOOD CELL COUNT 3.03 x10^6/uL (4.50-6.00); WHITE BLOOD CELL COUNT,WBC 13.1 10^3/uL (4.0-11.0)
[2023-11-08 10:28] LABS: CALCIUM 8.4 mg/dL (8.4-10.1); CREATININE 1.6 mg/dL (0.7-1.3); EST CRCL DRUG DOSING (CG) 30.41 mL/min; MAGNESIUM 1.7 mg/dL (1.8-2.4); POTASSIUM,K 3.5 mEq/L (3.5-5.0)
[2023-11-08] MEDS ORDERED: Lidocaine 4% 1 each Patch TOP PRN (11:34)
[2023-11-08] MEDS: Gabapentin 300 MG Cap PO SCH ×2 (13:55→19:16)
[2023-11-08] MEDS: Metoprolol Succinate 100 MG Tab.ER PO SCH (13:55)
[2023-11-08] MEDS ORDERED: Gabapentin 100 MG Cap PO SCH (14:00)
[2023-11-08] MEDS ORDERED: Acetaminophen/HYDROcodone 325-5 MG Tab PO PRN (14:28)
[2023-11-08] MEDS: Furosemide 20 MG Tab PO SCH (15:40)
[2023-11-08] MEDS: Pantoprazole 40 MG Vial IVPUSH SCH (16:13)
[2023-11-08] MEDS: Formoterol/Mometasone 200-5 MCG 8.8 GM Inhaler IH SCH (19:17)
[2023-11-08] MEDS ORDERED: Tamsulosin 0.4 MG Cap.ER PO SCH (20:00)
[2023-11-09] MEDS: Meropenem 1 GM SDV IVPUSH SCH ×2 (00:50→13:41)
[2023-11-09 07:36] LABS: BASOPHILS ABSOLUTE AUTO 0.03 10^3/uL (0.00-0.50); BASOPHILS PERCENT AUTO 0.2 % (0-1); EOSINOPHILS ABSOLUTE AUTO 0.08 10^3/uL (0.00-1.50); EOSINOPHILS PERCENT AUTO 0.6 % (0-6); HEMATOCRIT 27.3 % (42.0-52.0); HEMOGLOBIN 8.8 g/dL (14.0-18.0); IMMATURE GRAN ABSOLUTE AUTO 0.08 10^3/uL (0.00-0.49); IMMATURE GRAN PERCENT AUTO 0.6 % (0.0-4.9); LYMPHOCYTES ABSOLUTE AUTO 1.25 10^3/uL (0.60-5.00); LYMPHOCYTES PERCENT AUTO 10.1 % (24-44); MEAN CORPUSCULAR HEMOGLOBIN 29.8 pg (27.0-32.0); MEAN CORPUSCULAR HGB CONC 32.2 g/dL (32.0-36.0); MEAN CORPUSCULAR VOLUME 92.5 fL (83.0-97.0); MONOCYTES ABSOLUTE AUTO 1.68 10^3/uL (0.00-1.50); MONOCYTES PERCENT AUTO 13.6 % (0-10); NEUTROPHILS ABSOLUTE AUTO 9.23 x10^3/uL (1.80-8.00); NEUTROPHILS PERCENT AUTO 74.9 % (41-71); PLATELET COUNT,PLT 191 10^3/uL (150-400); RED BLOOD CELL COUNT 2.95 x10^6/uL (4.50-6.00); WHITE BLOOD CELL COUNT,WBC 12.4 10^3/uL (4.0-11.0)
[2023-11-09] MEDS: Albuterol/Ipratropium 3.0-0.5 MG/3 ML Neb Soln NEB SCH ×2 (07:43→12:27)
[2023-11-09] MEDS: Furosemide 20 MG Tab PO SCH (07:43)
[2023-11-09] MEDS: Metoprolol Succinate 100 MG Tab.ER PO SCH (07:43)
[2023-11-09] MEDS: Gabapentin 300 MG Cap PO SCH ×2 (07:43→13:42)
[2023-11-09 07:54] LABS: CALCIUM 8.4 mg/dL (8.4-10.1); CREATININE 1.4 mg/dL (0.7-1.3); EST CRCL DRUG DOSING (CG) 34.22 mL/min; MAGNESIUM 1.7 mg/dL (1.8-2.4); POTASSIUM,K 3.4 mEq/L (3.5-5.0)
[2023-11-09] MEDS: Formoterol/Mometasone 200-5 MCG 8.8 GM Inhaler IH SCH (09:30)
[2023-11-09 13:25] VITALS: BP 119/47; PULSE 92
== END 2023-11-09 14:50 | disposition swing bed (61) | DRG 682 ==
LOC: CC.ED 13:57 → CC.MS 15:05 → UNDOADMIN 15:05 → CC.MS 16:25
PROVIDERS: ADMIT Nurse Practitioner; ATTEND Nurse Practitioner
PROC: 30233N1 Transfusion of Nonautologous Red Blood Cells into Peripheral Vein, Percutaneous Approach (ICD-10-PCS; principal; 2023-11-05)
PROC: 30233N1 Transfusion of Nonautologous Red Blood Cells into Peripheral Vein, Percutaneous Approach (ICD-10-PCS; 2023-11-06)
PROC: 0TPB70Z Removal of Drainage Device from Bladder, Via Natural or Artificial Opening (ICD-10-PCS; 2023-11-09)
DX: N17.9 Acute kidney failure, unspecified (principal); I50.23 Acute on chronic systolic (congestive) heart failure; J18.9 Pneumonia, unspecified organism; Z51.5 Encounter for palliative care; E87.5 Hyperkalemia; D64.9 Anemia, unspecified; R09.02 Hypoxemia; J44.9 Chronic obstructive pulmonary disease, unspecified; G47.30 Sleep apnea, unspecified; M19.90 Unspecified osteoarthritis, unspecified site; R79.1 Abnormal coagulation profile; D72.829 Elevated white blood cell count, unspecified; I48.91 Unspecified atrial fibrillation; I11.0 Hypertensive heart disease with heart failure; Z88.1 Allergy status to other antibiotic agents; Z79.82 Long term (current) use of aspirin; Z79.02 Long term (current) use of antithrombotics/antiplatelets; Z79.899 Other long term (current) drug therapy; Z98.890 Other specified postprocedural states; Z11.52 Encounter for screening for COVID-19
CPT/HCPCS: 36415; 36430; 51702; 71045; 74176; 80048; 80053; 81001; 82272; 83605; 83735; 83880; 84484; 85025; 85379; 86140; 86850; 86900; 86901; 86920; 86922; 87040; 87070; 87077; 87186; 87205; 87804; 93005; 93010; 94640; 96365; 96368; 96375; 97110-GP; 97161-GP; 99285-25; A9270-GY; C9113; J0282; J0612; J1815-GY; J1940; J2185; J2270; J2543; J3490; J7030; J7050; J7060; J7613-GY; J7620-GY; P9016; U0002

== ENCOUNTER 2023-11-09 14:41 | Inpatient (IN) | payer MEDICARE ==
[2023-11-09] MEDS ORDERED: Acetaminophen 650 MG Supp RECTAL PRN (15:02)
[2023-11-09] MEDS ORDERED: 50% Dextrose in Water 50 ML Syringe IVPUSH PRN (15:02)
[2023-11-09] MEDS ORDERED: Acetaminophen/HYDROcodone 325-5 MG Tab PO PRN (15:02)
[2023-11-09] MEDS ORDERED: Ondansetron 4 MG/2 ML SDV IV PRN (15:02)
[2023-11-09] MEDS ORDERED: Acetaminophen 325 MG Tab PO PRN (15:02)
[2023-11-09] MEDS ORDERED: Lidocaine 4% 1 each Patch TOP PRN (15:02)
[2023-11-09] MEDS ORDERED: Polyethylene Glycol 3350 Powder 17 GM Packet PO PRN (15:02)
[2023-11-09] MEDS ORDERED: Glucagon,Human Recombinant 1 MG Vial IM PRN (15:02)
[2023-11-09] MEDS ORDERED: Docusate Sodium 100 MG Cap PO PRN (15:02)
[2023-11-09] MEDS: Furosemide 20 MG Tab PO SCH (15:47)
[2023-11-09] MEDS: Albuterol/Ipratropium 3.0-0.5 MG/3 ML Neb Soln NEB SCH ×2 (15:47→19:43)
[2023-11-09] MEDS: Pantoprazole 40 MG Vial IVPUSH SCH (16:00)
[2023-11-09] MEDS: Tamsulosin 0.4 MG Cap.ER PO SCH (19:38)
[2023-11-09] MEDS: Formoterol/Mometasone 200-5 MCG 8.8 GM Inhaler IH SCH (19:54)
[2023-11-09] MEDS: Gabapentin 300 MG Cap PO SCH (21:47)
[2023-11-10] MEDS: Meropenem 1 GM SDV IVPUSH SCH ×2 (01:15→13:06)
[2023-11-10] MEDS: Metoprolol Succinate 100 MG Tab.ER PO SCH (08:11)
[2023-11-10] MEDS: Furosemide 20 MG Tab PO SCH ×2 (08:12→15:04)
[2023-11-10] MEDS: Gabapentin 100 MG Cap PO SCH ×3 (08:12→19:29)
[2023-11-10] MEDS: Gabapentin 300 MG Cap PO SCH ×3 (08:12→19:29)
[2023-11-10] MEDS: Albuterol/Ipratropium 3.0-0.5 MG/3 ML Neb Soln NEB SCH ×4 (08:12→19:30)
[2023-11-10] MEDS: Formoterol/Mometasone 200-5 MCG 8.8 GM Inhaler IH SCH ×2 (08:13→19:30)
[2023-11-10] MEDS: Pantoprazole 40 MG Vial IVPUSH SCH (15:04)
[2023-11-10] MEDS: Tamsulosin 0.4 MG Cap.ER PO SCH (19:29)
[2023-11-11] MEDS: Meropenem 1 GM SDV IVPUSH SCH ×2 (00:31→12:14)
[2023-11-11] MEDS: Gabapentin 300 MG Cap PO SCH ×3 (07:58→19:38)
[2023-11-11] MEDS: Metoprolol Succinate 100 MG Tab.ER PO SCH (07:58)
[2023-11-11] MEDS: Furosemide 20 MG Tab PO SCH ×2 (07:59→16:25)
[2023-11-11] MEDS: Albuterol/Ipratropium 3.0-0.5 MG/3 ML Neb Soln NEB SCH ×4 (07:59→19:38)
[2023-11-11] MEDS: Gabapentin 100 MG Cap PO SCH ×3 (07:59→19:38)
[2023-11-11] MEDS: Formoterol/Mometasone 200-5 MCG 8.8 GM Inhaler IH SCH ×2 (08:00→19:35)
[2023-11-11] MEDS: Pantoprazole 40 MG Vial IVPUSH SCH (16:26)
[2023-11-11] MEDS: Tamsulosin 0.4 MG Cap.ER PO SCH (19:37)
[2023-11-12] MEDS: Meropenem 1 GM SDV IVPUSH SCH ×2 (00:38→12:29)
[2023-11-12] MEDS: Albuterol/Ipratropium 3.0-0.5 MG/3 ML Neb Soln NEB SCH ×4 (08:12→19:39)
[2023-11-12] MEDS: Gabapentin 300 MG Cap PO SCH ×3 (08:48→19:39)
[2023-11-12] MEDS: Furosemide 20 MG Tab PO SCH ×2 (08:48→16:19)
[2023-11-12] MEDS: Gabapentin 100 MG Cap PO SCH ×3 (08:48→19:39)
[2023-11-12] MEDS: Metoprolol Succinate 100 MG Tab.ER PO SCH (08:49)
[2023-11-12] MEDS: Formoterol/Mometasone 200-5 MCG 8.8 GM Inhaler IH SCH ×2 (12:42→19:39)
[2023-11-12] MEDS: Pantoprazole 40 MG Vial IVPUSH SCH (16:19)
[2023-11-12] MEDS: Tamsulosin 0.4 MG Cap.ER PO SCH (19:39)
[2023-11-13] MEDS: Meropenem 1 GM SDV IVPUSH SCH ×2 (00:44→13:30)
[2023-11-13] MEDS: Furosemide 20 MG Tab PO SCH ×2 (07:59→16:18)
[2023-11-13] MEDS: Albuterol/Ipratropium 3.0-0.5 MG/3 ML Neb Soln NEB SCH ×4 (07:59→19:21)
[2023-11-13] MEDS: Gabapentin 300 MG Cap PO SCH ×3 (07:59→19:22)
[2023-11-13] MEDS: Metoprolol Succinate 100 MG Tab.ER PO SCH (08:00)
[2023-11-13] MEDS: Gabapentin 100 MG Cap PO SCH ×3 (08:00→19:22)
[2023-11-13] MEDS: Formoterol/Mometasone 200-5 MCG 8.8 GM Inhaler IH SCH ×2 (08:02→19:25)
[2023-11-13] MEDS: Pantoprazole 40 MG Vial IVPUSH SCH (16:18)
[2023-11-13] MEDS: Tamsulosin 0.4 MG Cap.ER PO SCH (19:22)
[2023-11-14] MEDS: Meropenem 1 GM SDV IVPUSH SCH (00:32)
[2023-11-14] MEDS: Albuterol/Ipratropium 3.0-0.5 MG/3 ML Neb Soln NEB SCH ×4 (08:07→19:10)
[2023-11-14] MEDS: Metoprolol Succinate 100 MG Tab.ER PO SCH (08:13)
[2023-11-14] MEDS: Gabapentin 100 MG Cap PO SCH ×3 (08:13→19:10)
[2023-11-14] MEDS: Gabapentin 300 MG Cap PO SCH ×3 (08:13→19:10)
[2023-11-14] MEDS: Formoterol/Mometasone 200-5 MCG 8.8 GM Inhaler IH SCH ×2 (08:14→19:12)
[2023-11-14] MEDS: Furosemide 20 MG Tab PO SCH ×2 (08:14→15:32)
[2023-11-14 08:21] LABS: BASOPHILS ABSOLUTE AUTO 0.04 10^3/uL (0.00-0.50); BASOPHILS PERCENT AUTO 0.5 % (0-1); EOSINOPHILS ABSOLUTE AUTO 0.13 10^3/uL (0.00-1.50); EOSINOPHILS PERCENT AUTO 1.6 % (0-6); HEMATOCRIT 23.1 % (42.0-52.0); IMMATURE GRAN ABSOLUTE AUTO 0.02 10^3/uL (0.00-0.49); IMMATURE GRAN PERCENT AUTO 0.2 % (0.0-4.9); LYMPHOCYTES PERCENT AUTO 16.1 % (24-44); MEAN CORPUSCULAR HEMOGLOBIN 28.9 pg (27.0-32.0); MEAN CORPUSCULAR VOLUME 90.2 fL (83.0-97.0); MONOCYTES ABSOLUTE AUTO 1.05 10^3/uL (0.00-1.50); NEUTROPHILS ABSOLUTE AUTO 5.51 x10^3/uL (1.80-8.00); NEUTROPHILS PERCENT AUTO 68.6 % (41-71); PLATELET COUNT,PLT 205 10^3/uL (150-400); RED BLOOD CELL COUNT 2.56 x10^6/uL (4.50-6.00); WHITE BLOOD CELL COUNT,WBC 8.1 10^3/uL (4.0-11.0)
[2023-11-14 08:30] LABS: HEMOGLOBIN 7.4 g/dL (14.0-18.0)
[2023-11-14] MEDS ORDERED: Furosemide 40 MG/4 ML VIAL IVPUSH ONE (08:45)
[2023-11-14] MEDS ORDERED: Acetaminophen 325 MG Tab PO ONE (08:45)
[2023-11-14] MEDS ORDERED: Sodium Chloride 0.9% 250 ML IV ONE (09:00)
[2023-11-14 09:06] LABS: CALCIUM 8.4 mg/dL (8.4-10.1); CREATININE 1.3 mg/dL (0.7-1.3); EST CRCL DRUG DOSING (CG) 38.89 mL/min; POTASSIUM,K 4.2 mEq/L (3.5-5.0)
[2023-11-14] MEDS: Pantoprazole 40 MG Vial IVPUSH SCH (15:32)
[2023-11-14] MEDS: Tamsulosin 0.4 MG Cap.ER PO SCH (19:09)
[2023-11-15] MEDS: Gabapentin 100 MG Cap PO SCH (07:36)
[2023-11-15] MEDS: Furosemide 20 MG Tab PO SCH (07:36)
[2023-11-15] MEDS: Gabapentin 300 MG Cap PO SCH (07:36)
[2023-11-15] MEDS: Formoterol/Mometasone 200-5 MCG 8.8 GM Inhaler IH SCH (07:37)
[2023-11-15] MEDS: Metoprolol Succinate 100 MG Tab.ER PO SCH (07:37)
[2023-11-15] MEDS: Albuterol/Ipratropium 3.0-0.5 MG/3 ML Neb Soln NEB SCH ×2 (07:37→12:10)
[2023-11-15 07:46] LABS: BASOPHILS ABSOLUTE AUTO 0.07 10^3/uL (0.00-0.50); BASOPHILS PERCENT AUTO 0.8 % (0-1); EOSINOPHILS ABSOLUTE AUTO 0.16 10^3/uL (0.00-1.50); EOSINOPHILS PERCENT AUTO 1.9 % (0-6); HEMATOCRIT 30.2 % (42.0-52.0); HEMOGLOBIN 9.8 g/dL (14.0-18.0); IMMATURE GRAN ABSOLUTE AUTO 0.01 10^3/uL (0.00-0.49); IMMATURE GRAN PERCENT AUTO 0.1 % (0.0-4.9); LYMPHOCYTES ABSOLUTE AUTO 1.57 10^3/uL (0.60-5.00); LYMPHOCYTES PERCENT AUTO 18.4 % (24-44); MEAN CORPUSCULAR HEMOGLOBIN 29.4 pg (27.0-32.0); MEAN CORPUSCULAR HGB CONC 32.5 g/dL (32.0-36.0); MEAN CORPUSCULAR VOLUME 90.7 fL (83.0-97.0); MONOCYTES ABSOLUTE AUTO 0.92 10^3/uL (0.00-1.50); MONOCYTES PERCENT AUTO 10.8 % (0-10); NEUTROPHILS ABSOLUTE AUTO 5.79 x10^3/uL (1.80-8.00); PLATELET COUNT,PLT 228 10^3/uL (150-400); RED BLOOD CELL COUNT 3.33 x10^6/uL (4.50-6.00); WHITE BLOOD CELL COUNT,WBC 8.5 10^3/uL (4.0-11.0)
[2023-11-15 12:24] VITALS: BP 118/48; PULSE 7
== END 2023-11-15 13:30 | disposition home or self-care (01) | DRG 947 ==
LOC: CC.MS 14:53 → UNDOADMIN 14:53 → CC.MS 15:02
PROVIDERS: ADMIT Nurse Practitioner; ATTEND Nurse Practitioner
PROC: 30233N1 Transfusion of Nonautologous Red Blood Cells into Peripheral Vein, Percutaneous Approach (ICD-10-PCS; principal; 2023-11-14)
DX: R53.1 Weakness (principal); J18.9 Pneumonia, unspecified organism; K92.2 Gastrointestinal hemorrhage, unspecified; N17.9 Acute kidney failure, unspecified; Z66 Do not resuscitate; Z51.5 Encounter for palliative care; D50.0 Iron deficiency anemia secondary to blood loss (chronic); R79.89 Other specified abnormal findings of blood chemistry
CPT/HCPCS: 36415; 36430; 51702; 80048; 85025; 86850; 86900; 86901; 86920; 86922; 94640; 97110-GP; 97530-GP; A9270-GY; C9113; J1940; J2185; J7050; J7620-GY; P9016

== ENCOUNTER 2024-08-03 10:04 | Inpatient (IN) | payer MEDICARE, OTHER ==
[2024-08-03] MEDS ORDERED: Sodium Chloride 0.9% 10 ML Syringe FLUSH PRN (10:17)
[2024-08-03 10:25] LABS: BASOPHILS ABSOLUTE AUTO 0.02 10^3/uL (0.00-0.50); BASOPHILS PERCENT AUTO 0.1 % (0-1); EOSINOPHILS ABSOLUTE AUTO 0.04 10^3/uL (0.00-1.50); EOSINOPHILS PERCENT AUTO 0.1 % (0-6); HEMOGLOBIN 14.8 g/dL (14.0-18.0); IMMATURE GRAN ABSOLUTE AUTO 0.13 10^3/uL (0.00-0.49); IMMATURE GRAN PERCENT AUTO 0.5 % (0.0-4.9); LYMPHOCYTES ABSOLUTE AUTO 1.79 10^3/uL (0.60-5.00); LYMPHOCYTES PERCENT AUTO 6.7 % (24-44); MEAN CORPUSCULAR HEMOGLOBIN 24.5 pg (27.0-32.0); MEAN CORPUSCULAR HGB CONC 32.2 g/dL (32.0-36.0); MONOCYTES ABSOLUTE AUTO 2.52 10^3/uL (0.00-1.50); MONOCYTES PERCENT AUTO 9.4 % (0-10); NEUTROPHILS ABSOLUTE AUTO 22.26 x10^3/uL (1.80-8.00); NEUTROPHILS PERCENT AUTO 83.2 % (41-71); PLATELET COUNT,PLT 345 10^3/uL (150-400); RED BLOOD CELL COUNT 6.05 x10^6/uL (4.50-6.00)
[2024-08-03 10:26] LABS: WHITE BLOOD CELL COUNT,WBC 26.8 10^3/uL (4.0-11.0)
[2024-08-03] MEDS: Sodium Chloride 0.9% 1,000 ML IV ONE ×2 (10:34→12:43)
[2024-08-03 10:39] LABS: ALANINE AMINOTRANSFERASE,ALT 11 U/L (12-78); ALBUMIN 3.1 g/dL (3.4-5.0); ALKALINE PHOSPHATASE 95 U/L (46-116); ASPARTATE AMNIOTRANSFERASE,AST 23 U/L (15-37); BILIRUBIN TOTAL 1.1 mg/dL (0.0-1.0); BLOOD UREA NITROGEN,BUN 51 mg/dL (7-18); CALCIUM 11.6 mg/dL (8.4-10.1); CARBON DIOXIDE,CO2 29 mmol/L (21-32); CHLORIDE,CL 91 mEq/L (98-106); CREATININE 2.5 mg/dL (0.7-1.3); GLUCOSE RANDOM 191 mg/dL (75-99); LIPASE 17 U/L (16-77); POTASSIUM,K 3.7 mEq/L (3.5-5.0); PROTEIN TOTAL,TP 7.9 g/dL (6.4-8.2); SODIUM,NA 137 mEq/L (136-145)
[2024-08-03] MEDS: Ondansetron 4 MG/2 ML SDV IVPUSH STA ×2 (10:39→13:24)
[2024-08-03 10:48] LABS: APPEARANCE,URINE SLIGHTLY CLOUDY (CLEAR); BILIRUBIN,URINE NEGATIVE (NEGATIVE); COLOR,URINE YELLOW (YELLOW); GLUCOSE,URINE NEGATIVE (NEGATIVE); KETONES,URINE NEGATIVE (NEGATIVE); LEUKOCYTE ESTERASE,URINE NEGATIVE (NEGATIVE); NITRITE,URINE NEGATIVE (NEGATIVE); OCCULT BLOOD,URINE LARGE (NEGATIVE); PH,URINE 5.5 (4.5-8.0); PROTEIN,URINE >=300 mg/dL (NEGATIVE); UROBILINOGEN,URINE 0.2 EU/dL (0.2-1.0)
[2024-08-03 10:53] LABS: BACTERIA,URINE FEW /HPF (NOT SEEN); EPITHELIAL CELLS,URINE NOT SEEN /HPF (NOT SEEN); MUCUS,URINE FEW /HPF (NOT SEEN); WBC,URINE 0-5 /HPF (0-5)
[2024-08-03 10:58] LABS: LACTIC ACID 8.6 mmol/L (0.4-2.0)
[2024-08-03 11:03] LABS: C-REACTIVE PROTEIN 16.96 mg/dL (<=0.50); ESTIMATED GFR 24 mL/min (>=60)
[2024-08-03 11:13] VITALS: BP 134/62
[2024-08-03] MEDS: Piperacillin/Tazobactam 4.5 GM in Sodium Chloride 0.9% 100 ML IV ONE (12:08)
[2024-08-03] MEDS ORDERED: Albuterol 0.083% 2.5 MG/3 ML Neb Soln INH PRN (15:02)
[2024-08-03] MEDS ORDERED: Acetaminophen/HYDROcodone 325-5 MG Tab PO PRN (15:02)
[2024-08-03] MEDS ORDERED: Lidocaine 4% 1 each Patch TOP PRN (15:02)
[2024-08-03 15:05] VITALS: PULSE 91
[2024-08-03] MEDS: Furosemide 20 MG Tab PO SCH (16:15)
[2024-08-03] MEDS ORDERED: Gabapentin 100 MG Cap PO SCH (20:00)
[2024-08-03] MEDS ORDERED: Formoterol/Mometasone 200-5 MCG 8.8 GM Inhaler IH SCH (20:00)
[2024-08-03] MEDS ORDERED: Tamsulosin 0.4 MG Cap.ER PO SCH (20:00)
[2024-08-04] MEDS ORDERED: Metoprolol Succinate 25 MG Tab.ER PO SCH (08:00)
[2024-08-04] MEDS ORDERED: Pantoprazole 40 MG Tab.CR PO SCH (08:00)
[2024-08-04] MEDS ORDERED: Enoxaparin 30 MG/0.3 ML Syringe SUBCUT SCH (12:00)
== END 2024-08-03 19:04 | disposition expired | DRG 698 ==
LOC: CC.ED 10:04 → CC.MS 13:30 → CC.ED 13:30
PROVIDERS: ADMIT Nurse Practitioner Family; ATTEND Nurse Practitioner Family
DX: T83.511A Infection and inflammatory reaction due to indwelling urethral catheter, initial encounter (principal); A41.9 Sepsis, unspecified organism; R65.20 Severe sepsis without septic shock; R10.84 Generalized abdominal pain; I11.0 Hypertensive heart disease with heart failure; N30.01 Acute cystitis with hematuria; Z88.8 Allergy status to other drugs, medicaments and biological substances; N17.9 Acute kidney failure, unspecified; E87.20 Acidosis, unspecified; I13.0 Hypertensive heart and chronic kidney disease with heart failure and stage 1 through stage 4 chronic kidney disease, or unspecified chronic kidney disease; Z66 Do not resuscitate; N18.9 Chronic kidney disease, unspecified; I50.9 Heart failure, unspecified; M19.90 Unspecified osteoarthritis, unspecified site; J44.9 Chronic obstructive pulmonary disease, unspecified; G47.30 Sleep apnea, unspecified; H26.9 Unspecified cataract; Z88.1 Allergy status to other antibiotic agents; Z97.8 Presence of other specified devices; Z99.81 Dependence on supplemental oxygen; Z79.52 Long term (current) use of systemic steroids; Z98.890 Other specified postprocedural states; Z79.899 Other long term (current) drug therapy
CPT/HCPCS: 36415; 71045; 74176; 80053; 81001; 83605; 83690; 85025; 86140; 87040; 96361; 96365; 96375; 96376; 99236; 99285-25; J2405; J2543; J3490; J7030